=== PATIENT | female | born 1970 | race Caucasian/White ===

== ENCOUNTER 2023-05-14 06:18 | Observation (INO) ==
--- NOTE | 2023-04-26 14:14 | PAT Medication Instructions ---
Medication Instructions Date of Service April 26, 2023 Home Medications cholecalciferol (vitamin D3) 25 mcg (1,000 unit) tablet (Vitamin D3) 1,000 unit PO QAM cyanocobalamin (vitamin B-12) 500 mcg tablet (Vitamin B-12) 500 mcg PO QAM cyclobenzaprine 5 mg tablet 5 mg PO PM PRN muscle spasms cetirizine 10 mg tablet (Zyrtec) 10 mg PO HS gabapentin 100 mg tablet 100 mg PO HS ibuprofen 200 mg tablet (Advil) 600 mg PO BID PRN Pain multivitamin 1 tab PO QAM polyethylene glycol 3350 17 gram oral powder packet (Miralax) 17 g PO Q2D sertraline 50 mg tablet 50 mg PO HS ASK your surgeon for instructions ibuprofen 200 mg tablet (Advil) 600 mg PO BID PRN Pain DO NOT take the morning of surgery cholecalciferol (vitamin D3) 25 mcg (1,000 unit) tablet (Vitamin D3) 1,000 unit PO QAM cyanocobalamin (vitamin B-12) 500 mcg tablet (Vitamin B-12) 500 mcg PO QAM multivitamin 1 tab PO QAM polyethylene glycol 3350 17 gram oral powder packet (Miralax) 17 g PO Q2D Take evening before surgery cyclobenzaprine 5 mg tablet 5 mg PO PM PRN muscle spasms (if needed) cetirizine 10 mg tablet (Zyrtec) 10 mg PO HS gabapentin 100 mg tablet 100 mg PO HS sertraline 50 mg tablet 50 mg PO HS Other Notes If you have any questions please call us at [phone] or [phone] or [phone] or [phone]
--- NOTE | 2023-04-30 11:37 | Anesthesiology Consultation ---
Date of Service April 30, 2023 Assessment & Plan (1) Encounter for pre-operative examination: Chart Review Chart Review: Acceptable Risk for Surgery (pending PCP clearance 05/03/23) and Patient seen in Pre Admission Testing - Awaiting PCP clearance 05/03/23 ([facility]) Per PAT appt on 04/30/23, no recent illness/disease exposures, illness related symptoms, or recent illness/disease positive tests. Will leave to surgeon's discretion if preop Covid testing needed Teaching & Discussion Pre-Anesthesia Teaching/Discussion Notes: Instructed NPO after midnight before surgery,except medications with 15 cc of water. Medication instructions provided according to the PAT guidelines. History Surgery Operation Date: 05/14/23 10:05 Proposed Procedures p C4-C7 Anterior Cervical Discectomy and Fusion, Spinal Cord Monitoring - John Craig DO Height/Weight Height: 5 ft 8 in Weight: 82.3 kg Allergies Allergy/AdvReac Type Severity Reaction Status Date / Time Sulfa (Sulfonamide Allergy Unknown Rash Verified 04/21/23 11:38 Antibiotics) amoxicillin [From Augmentin] AdvReac Unknown Diarrhea Verified 04/21/23 11:38 clavulanic acid AdvReac Unknown Diarrhea Verified 04/21/23 11:38 [From Augmentin] Medications Home Medications Medication Instructions Recorded Confirmed Last Taken cholecalciferol (vitamin D3) 25 1,000 unit PO QAM 09/17/19 04/21/23 09/17/19 mcg (1,000 unit) tablet (Vitamin D3) cyanocobalamin (vitamin B-12) 500 500 mcg PO QAM 09/17/19 04/21/23 09/17/19 mcg tablet (Vitamin B-12) cyclobenzaprine 5 mg tablet 5 mg PO PM PRN muscle spasms 09/17/19 04/21/23 09/16/19 cetirizine 10 mg tablet (Zyrtec) 10 mg PO HS 08/20/21 04/21/23 Unknown gabapentin 100 mg tablet 100 mg PO HS 08/20/21 04/21/23 Unknown ibuprofen 200 mg tablet (Advil) 600 mg PO BID PRN Pain 08/20/21 04/21/23 Unknown multivitamin 1 tab PO QAM 08/20/21 04/21/23 Unknown polyethylene glycol 3350 17 gram 17 g PO Q2D 08/20/21 04/21/23 Unknown oral powder packet (Miralax) sertraline 50 mg tablet 50 mg PO HS 08/20/21 04/21/23 Unknown Past Medical History Medical History (Updated 04/30/23 @ 11:41 by Ebony Mccoy PA-C) Anxiety Cancer SKIN CANCER BCC FACE s/p excision Depression Elevated blood pressure reading variable per pt History of palpitations w/anxiety>not cardiac related no recent issues Hx of renal calculi No recent issues Migraine Ureteral stricture resolved with surgical dilation Exercise / Class Metabolic Activity II 4-5 Yardwork/Stairs/Walk up hill (one flight of stairs- no chest pain or SOB ) Past Family History Family History Mother Family history of reaction to anesthesia PONV Grandmother (Maternal) Family history of diabetes mellitus Aunt Family history of diabetes mellitus Uncle Family history of diabetes mellitus Past Surgical History Surgical History H/O lithotripsy History of back surgery LUMBAR History of colonoscopy Hx of basal cell carcinoma excision Hx of tubal ligation Hx of ureter repair [facility] Nausea and vomiting after administration of anesthetic agent S/P wisdom tooth extraction Past Anesthesia History No Hx of Anesthesia Complications (with exception to PONV ) and No Family Hx of Anesthesia Complications History of PONV No Hx of Motion Sickness and History of PONV (scop patch ordered for DOS) Social History Smoking Status: Never smoker Do You Dip or Chew Tobacco: No Hx Alcohol Use: Yes alcohol intake frequency: holidays/special occasions only Hx Substance Use: No substance use type: does not use Review of Systems - Hx of snoring- no hx of sleep study Patient denies chest pain, shortness of breath, dyspnea on exertion, reflux, cough, wheezing, palpitations. No hx of seizures, stroke, NV. No hx of blood clots or blood transfusions Physical Exam Vital Signs VITALS BP 148/94 P 75 TEMP 98.0 SP02 97% RESP 16 Constitutional no acute distress ENMT Mouth: + small oral opening; no TMJ clicking Thyromental Distance: > or= 3.5 Finger Breadths (3.5) Mallampati Class: III Dental repair to left molar Neck + limited neck extension (minimal) Respiratory normal respiratory effort; no respiratory distress Auscultation: lungs clear to auscultation bilaterally; no wheezes Cardiovascular Rate/Rhythm: regular rate and regular rhythm Heart Sounds: no murmur Vessels: no carotid bruit Musculoskeletal Spine: + pain with cervical ROM Extremities: extremities normal to inspection Psychiatric Orientation: alert Lab Results Anesthesia Preop Results Results Anesthesia Widget: WBC 6.38 K/ul (4.8-10.8) 04/30/23 Hgb 13.2 g/dl (12.0-16.0) 04/30/23 Hct 39.7 % (37.0-47.0) 04/30/23 Plt 237 K/uL (130-400) 04/30/23 Na 139 mmol/L (136-145) 04/30/23 K 4.4 mmol/L (3.5-5.1) 04/30/23 Cl 104 mmol/L (98-107) 04/30/23 CO2 30 mmol/L (21-32) 04/30/23 BUN 15 mg/dl (6-23) 04/30/23 Creat 0.70 mg/dl (0.6-1.2) 04/30/23 Glucose Level 80 mg/dl (70-99(Fasting)) 04/30/23 PT 10.2 Seconds (9.0-12.0) 04/30/23 PTT 26.2 Seconds (21.0-31.0) 04/30/23 INR 0.9 (0.9-1.1) 04/30/23 Urine Color Yellow 04/30/23 Urine Appearance Clear (Clear) 04/30/23 Urine pH 7.0 (4.5-7.5) 04/30/23 Urine Specific [place] 1.008 (1.000-1.030) 04/30/23 Urine Protein Negative (Negative) 04/30/23 Urine Glucose (UA) Negative (Negative) 04/30/23 Urine Ketones Negative (Negative) 04/30/23 Urine Blood Negative (Negative) 04/30/23 Urine Nitrite Negative (Negative) 04/30/23 Urine Bilirubin Negative (Negative) 04/30/23 Urine Urobilinogen Negative (Negative) 04/30/23 Urine Leukocyte Esterase Negative (Negative) 04/30/23 Blood Type O Positive 04/30/23 Antibody Screen NEGATIVE 04/30/23 Testing Electrocardiogram Date: 04/30/23 Findings: + NSR @ (72bpm) Normal EKG per cardio Chest X-Ray Date: 04/30/23 Findings: + NAD
[~2023-05-14 06:18] MED LIST: ACETAMINOPHEN 500 MG TAB PO SCH; CLINDAMYCIN/D5W 900 MG/50 ML BAG IV SCH; CeleBREX 200 MG CAP PO SCH; GABAPENTIN 900 MG DOSE PO SCH; LR 15ML/HR IV SCH; LR 60ML/HR IV SCH
[2023-05-14] MEDS ORDERED: SCOPOLAMINE 1 MG TDSY TD ONE ×2 (06:58→07:01)
[2023-05-14] MEDS ORDERED: ePHEDrine sulfate 50 MG/ML AMP IV PRN (06:59)
[2023-05-14] MEDS ORDERED: ONDANSETRON INJ 2 MG/ML 2 ML VIAL IV PRN ×2 (06:59→11:34)
[2023-05-14] MEDS ORDERED: ONDANSETRON INJ 2 MG/ML 2 ML VIAL ONE ×2 (06:59→09:46)
[2023-05-14] MEDS ORDERED: ROCURONIUM BROMIDE 10 MG/ML 5 ML VIAL IV ONE (06:59)
[2023-05-14] MEDS ORDERED: PROMETHAZINE HCL 6.25 MG in SODIUM CHLORIDE 0.9% 50 ML IV PRN (06:59)
[2023-05-14] MEDS ORDERED: MIDAZOLAM HCL 1 MG/ML 2ML VIAL ONE (06:59)
[2023-05-14] MEDS ORDERED: DEXAMETHASONE SOD INJ 4 MG/ML VIAL ONE (06:59)
[2023-05-14] MEDS ORDERED: ATROPINE SULFATE 0.1 MG/ML 10ML SYR IV PRN (06:59)
[2023-05-14] MEDS ORDERED: fentaNYL citrate PF 100 MCG/2 ML VIAL ONE ×2 (06:59→07:57)
[2023-05-14] MEDS ORDERED: PROPOFOL IV EMULSION 10 MG/ML 20 ML VIAL IV ONE (06:59)
[2023-05-14] MEDS ORDERED: ceFAZolin 330 MG/ML 1 GM VIAL ONE (07:01)
[2023-05-14] MEDS ORDERED: FAMOTIDINE/PF 20 MG/2 ML VIAL IV ONE (07:14)
--- NOTE | 2023-05-14 07:40 | History & Physical Bridge Note ---
Date of Service May 14, 2023 History & Physical Bridge Note I have examined the patient, reviewed the History & Physical and in the interval since the performance of the History & Physical I have noted the following changes of clinical significance: no changes noted
--- NOTE | 2023-05-14 07:41 | History & Physical Report ---
Date of Service May 14, 2023 Assessment & Plan (1) Cervical radiculopathy at C7: Plan: C4-C7 anterior cervical discectomy and fusion History of Present Illness Chief Complaint: Neck and arm pain Primary Care Provider: Milo Valdes DO This is a 52-year-old Allergies Allergy/AdvReac Type Severity Reaction Status Date / Time Sulfa (Sulfonamide Allergy Unknown Rash Verified 05/14/23 06:30 Antibiotics) amoxicillin [From Augmentin] AdvReac Unknown Diarrhea Verified 05/14/23 06:30 clavulanic acid AdvReac Unknown Diarrhea Verified 05/14/23 06:30 [From Augmentin] Home Medications Medication Instructions Recorded Confirmed Type cholecalciferol (vitamin D3) 25 1,000 unit PO QAM 09/17/19 05/14/23 History mcg (1,000 unit) tablet (Vitamin D3) cyanocobalamin (vitamin B-12) 500 500 mcg PO QAM 09/17/19 05/14/23 History mcg tablet (Vitamin B-12) cyclobenzaprine 5 mg tablet 5 mg PO PM PRN muscle spasms 09/17/19 05/14/23 History cetirizine 10 mg tablet (Zyrtec) 10 mg PO HS 08/20/21 05/14/23 History gabapentin 100 mg tablet 100 mg PO HS 08/20/21 05/14/23 History ibuprofen 200 mg tablet (Advil) 600 mg PO BID PRN Pain 08/20/21 05/14/23 History multivitamin 1 tab PO QAM 08/20/21 05/14/23 History polyethylene glycol 3350 17 gram 17 g PO Q2D 08/20/21 05/14/23 History oral powder packet (Miralax) sertraline 50 mg tablet 50 mg PO HS 08/20/21 04/21/23 History Past Med/Surg History Medical History History of palpitations w/anxiety>not cardiac related no recent issues Hx of renal calculi No recent issues Elevated blood pressure reading variable per pt Cancer SKIN CANCER BCC FACE s/p excision Anxiety Depression Migraine Ureteral stricture resolved with surgical dilation Surgical History Hx of tubal ligation S/P wisdom tooth extraction Hx of ureter repair [facility] Hx of basal cell carcinoma excision Nausea and vomiting after administration of anesthetic agent History of back surgery LUMBAR History of colonoscopy H/O lithotripsy Family History Mother Family history of reaction to anesthesia PONV Grandmother (Maternal) Family history of diabetes mellitus Aunt Family history of diabetes mellitus Uncle Family history of diabetes mellitus Social History Smoking Status: Never smoker Second Hand Exposure: No; Do You Dip or Chew Tobacco: No; Tobacco Cessation Education Requested by Patient: No Hx Alcohol Use: Yes Hx Substance Use: No Preferred Language: Slovenian Communication Ability: Effective Visual Impairment: No Limitations Incinerator Operator Required: No Beliefs That Will Affect Care: None marital status: Current Living Situation: Spouse and Family Current Living Situation Comment: LIVES WITH SPOUSE 2 DAUGHTERS current occupational status: employed current occupation: [employer] Other Information That Helps Us Care for You: No Feels Safe at Home: Yes Safety Concerns: Feels Safe At This Time Assistive Devices: Glasses Physical Exam Physical Exam: Patient is alert and oriented Heart regular rhythm lungs clear Results & Data Results & Data Vital Signs (Past 12 Hours) Vital Signs Temp Pulse Resp BP Pulse Ox O2 Del Method 05/14/23 06:35 36.6 C 83 18 157/98 H 97 Room Air
[2023-05-14] MEDS ORDERED: diphenhydrAMINE 50 MG/ML VIAL ONE (08:23)
[2023-05-14] MEDS ORDERED: PHENYLEPHRINE 100MCG/ML 10ML SYR IV ONE (08:26)
[2023-05-14] MEDS ORDERED: ACETAMINOPHEN 1000 MG/100 ML IV IV ONE (09:32)
[2023-05-14] MEDS ORDERED: FLOSEAL HEMOSTATIC MATRIX 10ML TOP ONE (09:45)
--- NOTE | 2023-05-14 09:51 | Operative Report ---
Post Operative Report Pre & Post Diagnosis Operation Date: 05/14/23 07:45 Pre-Op Diagnosis: Cervical spinal stenosis with radiculopathy Post-Op Diagnosis: Same I identified the patient and participated in the time-out.: Yes Procedure Operation Date: 05/14/23 07:45 Actual Procedures Anterior cervical discectomy C4-C5, C5-C6 and C6-C7. #2 anterior cervical arthrodesis C4-C5, C5-C6 C6-C7. #3 placement spiral 7 mm cage at C4-C5, 7 mm cage at C5-C6 and an 8 mm cage at C6-C7. All failure fracture. #4 application of K2 M plate and screw from C4-C7. Surgeon John Craig, DO Dance Studio Manager Eugene Kebede Estimated Blood Loss 10 Findings Consistent with Post-Op Diagnosis Specimens None Indications This is a 52-year-old female who presents above-mentioned diagnosis and then since course of nonoperative care she is here for surgical invention. Description of Procedure Patient was met with identified informed consent obtained. Patient was then taken operative suite underwent patient placed in supine position ingestible top the Price frame. On the [place] table with the head Eckert head of music. All bony prominences well-padded eyes inspected to ensure no external precipice monitor at this point the anterior cervical spine was prepped and draped no sterile fashion. With assistance of fluoroscopy identified the C5 vertebral body and a transverse incision was placed along the right anterior aspect of the cervical spine overlying the region. Blunt dissection with assistance of a [place] form down to and exposing the anterior cervical spine from C4-C7. A self-retaining tractor was placed. Then performed a complete discectomy of C4- C5 out to the uncovertebral joints uncovertebral joints bilaterally. [place] distraction was utilized to assist in visualization. Removed all posterior annular fibers longitudinal ligament bilateral foraminotomies performed. Endplates were to subcortical bleeding bone and a 7 mm Spira cage with I factor tapped position. Then proceeded to see 5 C6. Again complete discectomy performed including removal of posterior annular fibers longitudinal ligament bilateral foraminotomies performed. Endplates were to subcortical bleeding bone and a 7 mm Spira cage with I factor tapped in position. Lastly proceeded to see 6 C7. Again complete discectomy performed out to the uncovertebral joints removed all posterior fibers longitudinal ligament bilateral foraminotomies performed. Bilaterally. [place] distracting pins again utilized. Endplates were to subcortical bleeding bone and a 8 mm Spira cage with I factor tapped in position. Distracting apparatus was removed and the anterior osteophytes were reduced with cortical surface. A K2 M plate and screws were then applied with the assistance of fluoroscopy. The incision was then copiously irrigated explored to ensure no damage to surrounding structures remaining bleeding. 10 round TUCKER drain inserted. The incision was then closed with 2-0 Vicryl to fascia and 4 Monocryl for final closure. Steri-Strips sterile dressings placed. Patient waken taken to PACU in stable condition. Please note spinal cord monitoring visualized at the procedure no changes noted. Lastly Eugene Kebede was present at the entire surgery and all the patient positioning compl ex portion of the surgery and final skin closure. I attest to the content of the Intraoperative Record and any orders documented therein. Any exceptions are noted below.
[2023-05-14] MEDS: fentaNYL citrate PF 100 MCG/2 ML VIAL IV PRN ×4 (10:19→10:46)
--- NOTE | 2023-05-14 10:42 | Fluoroscopy Report ---
INTRAOPERATIVE RADIOGRAPHS CLINICAL HISTORY: Cervical spinal fusion. Fluoro time: 11 seconds Ka,r: 1.01 mGy FINDINGS: 2 spot fluoroscopic views of the cervical spine are presented. There has been discectomy at C4-C5, C5-C6, and C6-C7 with anterior fusion at C4-C7. The hardware appears intact. An endotracheal tube is in place. IMPRESSION: Intraoperative images from cervical spinal fusion surgery as above. Electronically signed by: Johnathan Anderson M.D. 05/14/2023 10:41 AM
[2023-05-14] MEDS ORDERED: NALOXONE HCL 0.4 MG/1 ML VIAL/CARP IV PRN (11:34)
[2023-05-14] MEDS ORDERED: bisacodyL 10 MG SUPP PR PRN (11:34)
[2023-05-14] MEDS ORDERED: ACETAMINOPHEN 500 MG TAB PO PRN (11:34)
[2023-05-14] MEDS ORDERED: HYDROmorphone INJ 0.5 MG/0.5 ML SYR IV PRN (11:34)
[2023-05-14] MEDS ORDERED: FAMOTIDINE 20 MG TAB PO PRN (11:34)
[2023-05-14] MEDS ORDERED: diphenhydrAMINE Capsule 25 MG CAP PO PRN (11:34)
[2023-05-14] MEDS ORDERED: ACETAMINOPHEN 1,000 MG/100 ML VIAL IV PRN (11:34)
[2023-05-14] MEDS ORDERED: dexAMETHasone 8 MG in SYRINGE 0 ML IV PRN (11:34)
[2023-05-14] MEDS ORDERED: DO NOT ADMINISTER PNEUMOCOCCAL VACCINE PRN (11:34)
[2023-05-14] MEDS ORDERED: MAGNESIUM HYDROXIDE SUSP 30 ML UDC PO PRN (11:34)
[2023-05-14] MEDS ORDERED: hydrOXYzine HCl 25 MG TAB PO PRN (11:34)
[2023-05-14] MEDS ORDERED: traMADol HCL 50 MG TABLET PO PRN (11:34)
[2023-05-14] MEDS ORDERED: LORazepam 0.5 MG in SYRINGE 0.25 ML IV PRN (11:34)
[2023-05-14] MEDS ORDERED: HYDROmorphone INJ 1 MG/ML SYRINGE IV PRN (11:34)
[2023-05-14] MEDS ORDERED: SOD PHOSPHATE/SOD BIPHOSPHATE ENEMA 132 ML BTL PR PRN (11:34)
[2023-05-14] MEDS ORDERED: PROMETHAZINE HCL 12.5 MG in SODIUM CHLORIDE 0.9% 50 ML IV PRN (11:34)
[2023-05-14] MEDS ORDERED: ONDANSETRON 4 MG OD TAB PO PRN (11:34)
[2023-05-14] MEDS ORDERED: ALUMINUM/MAGNESIUM SUSP 30 ML UDC PO PRN (11:34)
[2023-05-14] MEDS ORDERED: DO NOT ADMINISTER FLU VACCINE PRN (11:34)
[2023-05-14] MEDS ORDERED: RACEPINEPHRINE 2.25% NEBU SOLN 0.5 ML VIAL INH PRN (11:34)
[2023-05-14] MEDS ORDERED: METOCLOPRAMIDE HCL INJ 5 MG/ML 2 ML VIAL IV PRN (11:34)
[2023-05-14] MEDS: LORazepam 0.5 MG TAB PO PRN ×2 (12:15→20:15)
--- NOTE | 2023-05-14 12:30 | Anesthesiology Progress Note ---
Date of Service May 14, 2023 Anesthesia Post Procedure Vital Signs Vital Signs: Temp Pulse Pulse Resp BP Pulse Ox O2 Del Method 05/14/23 12:16 89 16 143/83 H 96 Room Air 05/14/23 12:00 88 16 93 Room Air 05/14/23 11:49 84 16 124/78 97 Room Air 05/14/23 11:20 97.7 F 93 H 16 136/86 95 Room Air 05/14/23 11:05 98.6 F 92 H 15 144/86 H 98 Nasal Cannula 05/14/23 10:55 93 H 13 153/85 H 96 Nasal Cannula 05/14/23 10:45 89 13 150/94 H 96 Oxymask 05/14/23 10:35 81 12 146/93 H 98 Oxymask 05/14/23 10:25 92 H 14 143/81 H 100 Oxymask 05/14/23 10:15 85 14 137/88 98 Oxymask 05/14/23 10:05 96.8 F L 86 12 142/87 H 98 Oxymask 05/14/23 06:35 97.9 F 83 18 157/98 H 97 Room Air O2 Flow Rate 05/14/23 12:16 05/14/23 12:00 05/14/23 11:49 05/14/23 11:20 05/14/23 11:05 2 05/14/23 10:55 2 05/14/23 10:45 2 05/14/23 10:35 2 05/14/23 10:25 2 05/14/23 10:15 5 05/14/23 10:05 5 05/14/23 06:35 Pain Intensity Right Arm: Pain Intensity: 3 Neck: Pain Intensity: 5 Transfer of Care Handoff Completed per policy Notes Mental Status: alert / awake / arousable and participated in evaluation Patient Amnestic to Procedure: Yes Nausea / Vomiting: adequately controlled Pain: adequately controlled Airway Patency, RR, SpO2: stable & adequate BP & HR: stable & adequate Hydration State: stable & adequate Anesthetic Complications: no major complications apparent and Pt Satisfied with anesthetic care
[2023-05-14] MEDS: LACTATED RINGER'S 1,000 ML IV SCH ×2 (13:43→23:06)
[2023-05-14] MEDS: oxyCODONE HCL IR 5 MG TAB (IMMEDIATE RELEASE) PO PRN ×2 (13:49→21:01)
[2023-05-14] MEDS: CLINDAMYCIN/D5W 600 MG/50 ML BAG IV SCH ×2 (16:57→23:07)
[2023-05-14] MEDS: CHECK SCOPOLAMINE PATCH PLACEMENT SCH (17:02)
[2023-05-14] MEDS: GABAPENTIN 100 MG CAP PO SCH (20:16)
[2023-05-14] MEDS: DOCUSATE SODIUM/SENNA 50/8.6MG TAB PO SCH (20:16)
[2023-05-14] MEDS: CETIRIZINE HCL 10 MG TABLET PO SCH (20:16)
[2023-05-15] MEDS: CHECK SCOPOLAMINE PATCH PLACEMENT SCH ×3 (01:03→17:35)
[2023-05-15] MEDS: oxyCODONE HCL IR 5 MG TAB (IMMEDIATE RELEASE) PO PRN ×3 (02:57→19:40)
[2023-05-15] MEDS: LORazepam 0.5 MG TAB PO PRN ×3 (05:11→14:55)
[2023-05-15] MEDS: POLYETHYLENE (MIRALAX) 17 GM PACK PO SCH ×3 (05:17→17:36)
--- NOTE | 2023-05-15 08:53 | Orthopedic Progress Note ---
Date of Service May 15, 2023 Assessment & Plan (1) Cervical radiculopathy at C7: Plan: At this time we will maintain the TUCKER drain another 24 hours. I will put her on every 6 Decadron to help with her esophageal pain and swelling. Anticipate discharge home tomorrow. Admission and Anticipated Discharge Date Admission Date: May 14, 2023 Subjective Patient's arm symptoms are improved. Neck pain controlled. She is having difficulty swallowing food. Physical Exam Physical Exam: Exam she is good strength testing. Dressings in place. 2. Functional. Results & Data Vital Signs (Past 12 Hours) Vital Signs Temp Pulse Resp BP Pulse Ox O2 Del Method 05/15/23 08:00 91 H 18 99 Room Air 05/15/23 07:21 36.8 C 82 19 159/95 H 97 Room Air 05/15/23 05:05 36.9 C 72 16 171/97 H 98 Room Air 05/15/23 03:00 86 16 94 Room Air 05/15/23 03:00 36.6 C 74 18 163/94 H 97 Room Air 05/15/23 01:01 36.8 C 79 14 160/91 H 96 Room Air 05/14/23 23:05 36.8 C 80 16 143/84 H 95 Room Air 05/14/23 22:26 89 18 95 Room Air 05/14/23 21:00 36.7 C 76 16 159/100 H 97 Room Air
[2023-05-15] MEDS ORDERED: dexAMETHasone 6 MG in SYRINGE 0 ML IV SCH (09:00)
[2023-05-15] MEDS: dexAMETHasone 8 MG in SYRINGE 0 ML IV SCH ×2 (12:22→17:35)
[2023-05-15] MEDS: DOCUSATE SODIUM/SENNA 50/8.6MG TAB PO SCH (19:41)
[2023-05-15] MEDS: CETIRIZINE HCL 10 MG TABLET PO SCH (19:41)
[2023-05-15] MEDS: GABAPENTIN 100 MG CAP PO SCH (19:41)
[2023-05-16] MEDS: dexAMETHasone 8 MG in SYRINGE 0 ML IV SCH ×2 (00:59→05:46)
[2023-05-16] MEDS: POLYETHYLENE (MIRALAX) 17 GM PACK PO SCH ×2 (01:00→05:47)
[2023-05-16] MEDS: CHECK SCOPOLAMINE PATCH PLACEMENT SCH ×2 (01:00→07:48)
--- NOTE | 2023-05-16 08:36 | Discharge Summary ---
Date of Service May 16, 2023 Admission HPI Per Admitting Provider This is a 52-year-old female who has failed nonoperative treatment regarding cervical stenosis. She presents for surgical intervention Admission Exam (Per Admitting) Constitutional WD/WN, vitals as above Eyes normal visual metz by confrontation ENMT external ear and nose normal, oropharynx normal Neck normal visual inspection Respiratory normal respiratory effort Cardiovascular Extremities: normal capillary refill Gastrointestinal (Abdomen) Inspection/Auscultation: abdomen normal to inspection Musculoskeletal Spine: + pain with cervical ROM and + cervical muscular tenderness Gait: normal gait Skin no rashes, warm and dry Neurologic normal touch/pain/proprioception and moves all extremities Psychiatric A+Ox3, euthymic affect Discharge Data Procedures Performed Operation Date: 05/14/23 07:45 Actual Procedures p C4-C7 Anterior Cervical Discectomy and Fusion with Spinal Cord Monitoring(Not Applicable) - John Craig DO Hospital Course (1) Cervical radiculopathy at C7: Yenifer is being discharged home on postoperative day 2 status post ACDF C4-C7. Postoperative day 1 she had some edema and some swallowing issues. Steroids were ordered. Currently on postoperative day 2 she is tolerating full liquid diet. She is up and ambulatory and using the restroom without issue. She has no arm symptoms. She states swallowing is improving. No shortness of breath Discharge Instructions ACTIVITY RECOMMENDATIONS: SELF CARE INSTRUCTIONS AFTER CERVICAL FUSIONS 1. No smoking. Smoking drastically decreases the chance of a solid fusion. 2. No bending, lifting more than 5 pounds, or twisting (roll like a log when turning in bed). 3. You may shower 3 days after surgery. Thoroughly dry wound. Do not soak in the tub. 4. Cervical collar: Must be worn at all times including sleeping. You may remove the brace only to bath, eat and if you are sitting in a recliner. 5. Please walk as much as you can for exercise. Gradually increase the distance that you walk as your endurance increases. SPECIAL CARE INSTRUCTIONS: VERY IMPORTANT TO READ AND REVIEW A. Do not take any anti-inflammatory medications (i.e. Indocin, Advil, Aspirin, Naprosyn, Aleve, Motrin, etc.) as these may inhibit the chance of a solid fusion. Tylenol is okay to take. B. Your surgical incision has been closed with a cosmetic suture under the skin that will dissolve in about 6 weeks. In 14 days, you can use a pair of clean scissors and cut the suture that is left outside of the skin at the ends of your incision. C. Complications are uncommon, but please contact us if you have any signs or symptoms of: 1. wound infection (fever higher than 102.5 degrees F, redness, separation of wound, drainage, or increasing pain from the incision) 2. blood clots in legs (pain, swelling, redness and warmth in legs) 3. urinary tract infection (fever higher than 102.5 degrees, burning upon urination or increased frequency of urination) 4. nerve problems (inability to walk on your toes or heels, numbness, loss of bowel or bladder control) 5. any other symptoms that concern you. D. Please call the office at if you have any concerns or questions about your operation or recovery. MANAGING PAIN AFTER SPINAL SURGERY 1. Narcotic medication is intended for short-term use and will be provided for surgical pain. Surgical pain usually lasts for a period of 4-6 weeks. Narcotic medication includes Percocet, Vicodin, Darvocet, Tylenol #3 or Lortab. 2. Longer-term pain is more appropriately treated with non-narcotic medication such as Tylenol ES. 3. Muscle spasm is not appropriately treated with narcotics. Muscle relaxers such as Soma, Flexeril or Skelaxin can be used along with Tylenol ES. 4. Remember that we all live with some "aches and pains". This is not unusual or uncommon after an injury or as we get older. 5. We will provide appropriate medication within the normal guidelines of their prescribed use. We will also be very cautious and aware of potential abuse and extended duration of patients' medication needs. 6. Please allow 2-3 days to process refills. Prescriptions will not be mailed but must be picked up at the office. FOLLOW UP VISIT: Keep your scheduled follow-up appointment. Any questions, please call the office at .
== END 2023-05-16 10:24 | disposition home or self-care (01) ==
LOC: 3E 06:18 → ASU 06:18